=== PATIENT | male | born 1965 | race Caucasian/White ===

== ENCOUNTER 2016-09-01 17:12 | Emergency (ER) | payer MEDICAID ==
[~2016-09-01] VITALS: Ht 172.7 cm; Wt 92.3 kg
[~2016-09-01 17:12] MED LIST: CITA10TA7 PO; CLIN300C86 PO; OMEP20CA10 PO; OXYC15TA50 PO; TRAM50TA4 PO
[2016-09-01 17:15] VITALS: Ht 172.7 cm; Wt 92.3 kg
--- OUTSIDE RECORDS SUMMARY | 2016-09-01 17:17 | XMS REPORT | Referral Summary ---
Author Author [facility] Organization [facility] Address Unknown Phone Unavailable Care Team Providers Care Road Worker Name Role Phone Loyda Dumont Primary Care Physician [phone] Encounter [facility] [id number] Date(s): 05/06/16 - 05/17/16 [facility] [address] [place] [address] [phone] Discharge Disposition: 01-Home or Self Care Attending Physician: Karen Sanchez DO Admitting Physician: Kaern Sanchez DO Vital Signs Most recent to 1 oldest [Reference Range]: Temperature Axillary 36.5 degC [35.2-36.7 degC] (05/17/16 3:59 PM) Temperature Oral 36.3 degC [35.8-37.3 degC] (05/15/16 4:44 AM) Temperature Skin 36.3 degC [36-37 degC] (05/06/16 5:45 AM) Temperature Temporal 36.8 degC Artery [36.3-37.8 (05/14/16 12:00 PM) degC] Peripheral Pulse 88 bpm Rate [60-100 bpm] (05/17/16 3:59 PM) Heart Rate Monitored 97 bpm [60-100 bpm] (05/14/16 4:45 PM) Respiratory Rate 20 br/min [14-20 br/min] (05/17/16 3:59 PM) Blood Pressure 102/63 mmHg [90-140/60-90 mmHg] (05/17/16 3:59 PM) Mean Arterial 81 mmHg Pressure, Cuff (05/17/16 7:47 AM) Blood Pressure 135/69 mmHg Invasive (05/09/16 6:00 AM) [90-140/60-90 mmHg] Mean Arterial 91 mmHg Pressure, Invasive (05/09/16 6:00 AM) SpO2 92 % (05/17/16 3:59 PM) Problem List Condition Effective Dates Status Health Status Informant Acute Active pain(Confirmed) Alteration in Active nutrition(Confirmed) 1 At risk for Resolved injury(Confirmed)2 At risk of pressure Resolved sore(Confirmed) Impaired gas Resolved exchange(Confirmed)3 Impaired skin Resolved integrity(Confirmed) 4 Knowledge Resolved deficit(Confirmed)5 Laceration of Active nose(Confirmed) Obesity(Confirmed) Active patient 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) 1Problem added automatically by system based on initiation of Alteration in Nutrition Plan of Care 2Problem added automatically by system based on initiation of Risk for Injury Plan of Care 3Problem added automatically by system based on initiation of Impaired Gas Exchange Plan of Care 4Problem added automatically by system based on initiation of Impaired Skin Integrity Plan of Care 5Problem added automatically by system based on initiation of Knowledge Deficit Plan of Care Allergies, Adverse Reactions, Alerts No Known Allergies Medications [place] 5 mg-325 mg oral tablet 1 tabs, Oral, q6hr, as needed for pain, # 15 tabs, 0 Refill(s) Start Date: 05/04/16 Stop Date: 06/04/16 Status: Ordered omeprazole 20 mg oral delayed release capsule 20 mg 1 caps, Oral, Daily, # 30 caps, 3 Refill(s), Pharmacy: [id number], 1 caps Oral Daily Start Date: 05/04/16 Status: Ordered Ultram 50 mg oral tablet 50 mg 1 tabs, Oral, q4hr, as needed for pain, # 60 tabs, 2 Refill(s) Start Date: 03/29/16 Status: Ordered Results Blood Gases Most recent to 1 oldest [Reference Range]: pH [7.35-7.45] 7.39 (05/10/16 5:32 AM) pCO2 Art [35-45 50 mmHg mmHg] *HI* (05/10/16 5:32 AM) Bicarbonate [22-26 29 mEq/L mEq/L] *HI* (05/10/16 5:32 AM) Base Excess Art 4 [0-2] *HI* (05/10/16 5:32 AM) O2 Sat Art 99.1 % [90.0-97.0 %] *HI* (05/10/16 5:32 AM) pO2 Art [80-100 141 mmHg mmHg] *HI* (05/10/16 5:32 AM) O2 Panel tpiece 35% (05/10/16 5:32 AM) Vent Mode ac/vc+ (05/09/16 5:17 AM) Set Vt 500 mL (05/09/16 5:17 AM) Set Rate 10 br/min (05/09/16 5:17 AM) PEEP 5.0 (05/09/16 5:17 AM) Spec Site SEE BELOW 1 (05/10/16 5:32 AM) 1Result Comment: A. brachialis r. Hematology Most recent to 1 oldest [Reference Range]: WBC [4.8-10.8 10.0 10*3/uL 10*3/uL] (05/14/16 3:05 AM) RBC [4.60-6.20] 3.53 *LOW* (05/14/16 3:05 AM) Hgb [14.0-18.0 10.7 gm/dL gm/dL] *LOW* (05/14/16 3:05 AM) Hct [42.0-52.0 %] 32.1 % *LOW* (05/14/16 3:05 AM) MCV [82.0-99.0 fL] 90.9 fL (05/14/16 3:05 AM) MCH [27.0-32.0 pg] 30.3 pg (05/14/16 3:05 AM) MCHC [32.0-36.0 33.3 gm/dL gm/dL] (05/14/16 3:05 AM) RDW [11.5-14.5 %] 12.4 % (05/14/16 3:05 AM) Platelet [150-400 589 10*3/uL 10*3/uL] *HI* (05/14/16 3:05 AM) MPV [9.4-12.3 fL] 9.3 fL *LOW* (05/14/16 3:05 AM) Chemistry Most recent to 1 oldest [Reference Range]: Sodium Lvl [136-144 136 mEq/L mEq/L] (05/14/16 3:05 AM) Potassium Lvl 4.3 mEq/L [3.6-5.1 mEq/L] (05/14/16 3:05 AM) Chloride [99-109 98 mEq/L mEq/L] *LOW* (05/14/16 3:05 AM) CO2 [22-32 mEq/L] 29 mEq/L (05/14/16 3:05 AM) AGAP [3-20] 9 (05/14/16 3:05 AM) BUN [4-20 mg/dL] 12 mg/dL (05/14/16 3:05 AM) Glucose Lvl [70-100 120 mg/dL mg/dL] *HI* (05/14/16 3:05 AM) Creatinine Lvl 0.89 mg/dL [0.64-1.27 mg/dL] (05/14/16 3:05 AM) eGFR [>60] >60 1 (05/14/16 3:05 AM) Calcium Lvl 8.6 mg/dL [8.6-10.0 mg/dL] (05/14/16 3:05 AM) Albumin Lvl [3.5-4.8 2.4 gm/dL gm/dL] *LOW* (05/14/16 3:05 AM) Magnesium Lvl 1.9 mg/dL [1.8-2.5 mg/dL] (05/14/16 3:05 AM) Phosphorus [2.4-4.7 4.4 mg/dL 2 mg/dL] (05/14/16 3:05 AM) Calcium Ionized 1.26 mmol/L [1.19-1.41 mmol/L] (05/14/16 3:06 AM) Blood Glucose, 101 mg/dL Capillary [70-100 *HI* mg/dL] (05/06/16 4:38 PM) Trig [0-150 mg/dL] 111 mg/dL (05/10/16 3:40 AM) 1Result Comment: Multiply eGFR results by 1.21 for race. 2Result Comment: High dosages of liposomal Amphotericin B (AmBisome) therapy or other drug preparations that use a liposomal envelope to facilitate drug delivery may cause falsely elevated results for phosphorus. Urinalysis Most recent to 1 oldest [Reference Range]: UA Color Yellow (05/17/16 1:30 PM) UA Appear Clear (05/17/16 1:30 PM) UA pH [5.0-8.0] 6.0 (05/17/16 1:30 PM) UA Leuk Est Negative [Negative] (05/17/16 1:30 PM) UA Nitrite Negative [Negative] (05/17/16 1:30 PM) UA Protein Negative [Negative] (05/17/16 1:30 PM) UA Glucose Negative [Negative] (05/17/16 1:30 PM) UA Ketones Negative [Negative] (05/17/16 1:30 PM) UA Urobilinogen Negative [<1.0] (05/17/16 1:30 PM) UA Bili [Negative] Negative (05/17/16 1:30 PM) UA Blood [Negative] Negative (05/17/16 1:30 PM) UA Spec Grav 1.025 [1.003-1.030] (05/17/16 1:30 PM) Type Clean Catch (05/17/16 1:30 PM) Immunizations Given and Recorded Vaccine Date Status Refusal Reason tetanus/diphth/pertuss (Tdap) adult/adol 07/25/10 Recorded Procedures Procedure Date Related Diagnosis Body Site Arterial puncture, withdrawal of blood for 05/10/16 diagnosis Arterial puncture, withdrawal of blood for 05/08/16 diagnosis Application Wound Vac1 05/06/16 Excision Lesion Oral2 05/06/16 Flap Free Formation3 05/06/16 Radical Neck Dissection4 05/06/16 Skin Graft Split Thickness5 05/06/16 Tracheostomy6 05/06/16 Esophagogastroduodenoscopy with Peg 05/04/16 Placement7 Procedure with Anesthesia8 05/04/16 Gall Bladder 05/07/09 1auto-populated from documented surgical case 2auto-populated from documented surgical case 3auto-populated from documented surgical case 4auto-populated from documented surgical case 5auto-populated from documented surgical case 6auto-populated from documented surgical case 7auto-populated from documented surgical case 8auto-populated from documented surgical case Social History Social History Type Response Smoking Status Former smoker; Type: Oral1 1Patinet uses chewing tobacco. Assessment and Plan Extracted from: Title: ENT - OUTGOING CALL Author: Nat Perez LPN Date: 04/30/16 Contacted pt to follow up on him and see how he was doing. Pt stated he was doing okay, just nervous about upcoming surgery. We discussed the need for a Peg Tube prior to surgery (sometime next week). Pt aware and will await call with further instructions. I also mailed pt information on support groups and trach home care guide. Nat Perez LPN
--- OUTSIDE RECORDS SUMMARY | 2016-09-01 17:17 | XMS REPORT | Referral Summary ---
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 Discharge Disposition: 01-Home or Self Care Attending Physician: Dariel Guerrier III, MD Admitting Physician: Dariel Guerrier III, MD Vital Signs No data available for this section Problem List Condition Effective Dates Status Health Status Informant Laceration of Active nose(Confirmed) Obesity(Confirmed) Active patient 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) Allergies, Adverse Reactions, Alerts No Known Allergies Medications Lortab 7.5/325 tabs, Oral, q6hr, 0 Refill(s) Start Date: 04/21/16 Status: Ordered OxyCONTIN 15 mg oral tablet, extended release 15 mg 1 tabs, Oral, q12hr, 0 Refill(s) Start Date: 05/03/16 Status: Ordered Ultram 50 mg oral tablet 50 mg 1 tabs, Oral, q4hr, as needed for pain, # 60 tabs, 2 Refill(s) Start Date: 03/29/16 Status: Ordered Results No data available for this section Immunizations Given and Recorded Vaccine Date Status Refusal Reason tetanus/diphth/pertuss (Tdap) adult/adol 07/25/10 Recorded Procedures Procedure Date Related Diagnosis Body Site Gall Bladder 05/07/09 Social History Social History Type Response Smoking Status Current every day smoker; Type: Oral1 1Patinet uses chewing tobacco. Assessment and Plan No data available for this section
--- OUTSIDE RECORDS SUMMARY | 2016-09-01 17:17 | XMS REPORT | Continuity of Care Document ---
Author Author [facility] Organization [facility] Address Unknown Phone Unavailable Care Team Providers Care Stock Puller Name Role Phone LIGIA PINEDO MD Primary Care Physician [phone] Insurance Providers Guarantor Mesfin Sullivan Jr Address [address] [place] [address] Email DENIED 16 Payer [facility] Community Plan Policy Number [id number] Subscriber's Name Mesfin Sullivan Jr Relationship 18 Self Effective Date 16 Expiration Date 16 Advance Directives Directive Response Recorded Date/Time Advanced Directives Type None 06/06/16 2:19pm Chief Complaint and Reason for Visit Chief Complaint Post-Surgical Problem Reason for Visit Abscess Problems Active Problems Medical Problem Onset Date Status Abscess Unknown Acute Cancer of mandible Unknown Past Problems Medical Problem Onset Date Cellulitis of leg Unknown Medications Current Home Medications Medication Dose Units Route Directions Days Qty Instructions Start Date Citalopram Hydrobromide (Citalopram Hbr) 10 Mg Tablet 10 Mg Oral Daily 06/06/16 Clindamycin Hcl 300 Mg Capsule 1 Cap Oral Four Times Daily 10 Days 40 Capsule TAKE WITH A FULL GLASS OF WATER TO AVOID ESOPHAGEAL IRRITATION. Omeprazole 20 Mg Capsule.dr 20 Mg Oral Daily 06/06/16 Oxycodone Hcl 15 Mg Tablet 15 Mg Oral Every 4 Hours as needed for Pain 06/06/16 Tramadol Hcl 50 Mg Tablet 50 Mg Oral Every 4 Hours as needed for Pain 05/24/16 Past Home Medications Medication Directions Ordered Status Hydrocodone Bit/Acetaminophen (Lortab 5) 1 Tab Tablet, 1 Tab Oral As Needed 05/07/09 Discontinued Social History Social History Problem Response Recorded Date/Time Onset Date Status Hx Substance Use No 06/06/2016 2:20pm Not Applicable Not Applicable Hx Alcohol Use Y OCC 06/06/2016 2:20pm Not Applicable Not Applicable Query Response Start Date Stop Date Smoking Status Never smoker Hospital Discharge Instructions No hospital discharge instructions. Plan of Care Discharge Date 06/06/16 7:02pm Disposition 01 DISCHARGED HOME, SELF-CARE Condition at Discharge Stable Instructions/Education Provided Abscess (ED) Prescriptions See Medication Section Referrals Dr Sanchez Address: follow up tomorrow Note: Additional Instructions/Education follow up tomorrow with your surgeon, return to the ER if needed. Functional Status No functional status results. Allergies, Adverse Reactions, Alerts No known allergies. Immunizations Query Response on File Recorded Date/Time Hx Influenza Vaccination No 05/06/09 10:59am Hx Pneumococcal Vaccination No 05/06/09 10:59am Hx Influenza Vaccination No 05/06/09 10:59am Influenza Vaccine Hx NOT REC'D 06/06/16 2:20pm Tdap Vaccine Hx SKIN INTACT 06/06/16 2:20pm Vital Signs Acute Vital Signs Vital Response Date/Time Temperature (Fahrenheit) 97.4 deg F (96.8 - 99.1) 06/06/2016 7:02pm Temperature (Calculated Celsius) 36.44547 degrees C (36.0 - 37.3) 06/06/2016 7:02pm Pulse Rate (adult) 76 bpm (60 - 100) 06/06/2016 7:02pm Respiratory Rate 14 breaths/min (10 - 20) 06/06/2016 7:02pm O2 Sat by Pulse Oximetry 95 % (90 - 100) 06/06/2016 7:02pm Blood Pressure 112/79 mm Hg 06/06/2016 7:02pm Height (Feet) 5 feet 06/06/2016 1:28pm Height (Inches) 7.00 inches 06/06/2016 1:28pm Weight (Kilograms) 89.900 kg 06/06/2016 1:28pm Body Mass Index (BMI) 31.0 06/06/2016 1:28pm Results Laboratory Results Test Name Result Units Flags Reference Collection Date/Time Result Date/ Time Comments Total Bilirubin 0.70 MG/DL 0.20-1.30 05/24/2016 11:07pm 05/24/2016 11: 22pm Alkaline Phosphatase 67 U/L 38-126 05/24/2016 11:07pm 05/24/2016 11: 22pm Total Protein 7.4 G/DL 6.3-8.2 05/24/2016 11:07pm 05/24/2016 11:22pm Albumin 3.9 G/DL 3.5-5.0 05/24/2016 11:07pm 05/24/2016 11:22pm Globulin 3.5 G/DL 2.4-3.6 05/24/2016 11:07pm 05/24/2016 11:22pm Albumin/Globulin Ratio 1.1 RATIO 1.1-2.2 05/24/2016 11:07pm 05/24/2016 11:22pm Aspartate Amino Transf (AST/SGOT) 26 U/L 17-59 05/24/2016 11:07pm 05/24 11:22pm Alanine Aminotransferase (ALT/SGPT) 29 U/L 21-72 05/24/2016 11:07pm 11:22pm White Blood Count 7.5 T/MM3 4.5-11.0 06/06/2016 3:32pm 06/06/2016 3: 50pm Red Blood Count 4.11 M/MM3 L 4.50-5.90 06/06/2016 3:32pm 06/06/2016 3: 50pm Hemoglobin 11.8 GM/DL L 13.5-17.5 06/06/2016 3:32pm 06/06/2016 3:50pm Hematocrit 36.6 % L 41-53 06/06/2016 3:32pm 06/06/2016 3:50pm Mean Corpuscular Volume 89.1 UM3 80-100 06/06/2016 3:32pm 06/06/2016 3: 50pm Mean Corpuscular Hemoglobin 28.7 UUG 26-34 06/06/2016 3:32pm 2016 3:50pm Mean Corpuscular Hemoglobin Concent 32.2 GM/DL 31-37 06/06/2016 3:32pm 06/06/2016 3:50pm RDW Standard Deviation 40.4 FL 36.9-50.2 06/06/2016 3:32pm 06/06/2016 3 :50pm Platelet Count 355 T/MM3 D 130-400 06/06/2016 3:32pm 06/06/2016 3:50pm Mean Platelet Volume 9.7 UM3 9.4-12.4 06/06/2016 3:[facility] 06/06/2016 3: 50pm Neutrophils (%) (Auto) 60.7 % 33-66 06/06/2016 3:[facility] 06/06/2016 3: 50pm Lymphocytes (%) (Auto) 27.8 % 23-45 06/06/2016 3:[facility] 06/06/2016 3: 50pm Monocytes (%) (Auto) 8.0 % 0-9.0 06/06/2016 3:[facility] 06/06/2016 3:50pm Eosinophils (%) (Auto) 2.5 % 0-4 06/06/2016 3:[facility] 06/06/2016 3:50pm Basophils (%) (Auto) 0.9 % 0-2 06/06/2016 3:[facility] 06/06/2016 3:50pm Immature Granulocyte % (Auto) 0.1 % 0.0-0.5 06/06/2016 3:[facility] 2016 3:50pm Absolute Neutrophils (auto) 4.5 T/MM3 1.8-7.7 06/06/2016 3:[facility] 2016 3:50pm Absolute Lymphocytes (auto) 2.1 T/MM3 1-4.8 06/06/2016 3:[facility] 2016 3:50pm Absolute Monocytes (auto) 0.6 T/MM3 0-0.8 06/06/2016 3:[facility] 06/06/2016 3:50pm Absolute Eosinophils (auto) 0.2 T/MM3 0-0.5 06/06/2016 3:[facility] 2016 3:50pm Absolute Basophils (auto) 0.1 T/MM3 0-0.2 06/06/2016 3:[facility] 06/06/2016 3:50pm Absolute Immature Granulocyte (auto 0.01 T/MM3 0.00-0.03 06/06/2016 3: [facility] 06/06/2016 3:50pm Icterus Index < 2 0-7 06/06/2016 3:32p 06/06/2016 3:49pm Chemistry Specimen Hemolysis < 15 0-25 06/06/2016 3:[facility] 06/06/2016 3 :49pm 0-25: Specimen Exhibited No Hemolysis. Turbidity < 20 0-20 06/06/2016 3:32pm 06/06/2016 3:49pm Sodium Level 140 MEQ/L 134-144 06/06/2016 3:32pm 06/06/2016 3:49pm Potassium Level 4.2 MEQ/L 3.6-5 06/06/2016 3:32pm 06/06/2016 3:49pm Chloride Level 104 MEQ/L 98-107 06/06/2016 3:32pm 06/06/2016 3:49pm Carbon Dioxide Level 26 MEQ/L 22-30 06/06/2016 3:32pm 06/06/2016 3: 49pm Anion Gap 10 MEQ/L 5-15 06/06/2016 3:32pm 06/06/2016 3:49pm Blood Urea Nitrogen 8.0 MG/DL L 9-06/06/2016 3:32pm 06/06/2016 3: 49pm Creatinine 0.9 MG/DL 0.8-1.5 06/06/2016 3:32pm 06/06/2016 3:49pm BUN/Creatinine Ratio 9 RATIO 6-06/06/2016 3:32pm 06/06/2016 3:49pm Glomerular Filtration Rate Calc 89 06/06/2016 3:32pm 06/06/2016 3: 49pm Glucose Level 97 MG/DL 75-110 06/06/2016 3:32pm 06/06/2016 3:49pm Calculated Osmolality 267 MOSM/KG 261-280 06/06/2016 3:32pm 06/06/2016 3:49pm Calcium Level 9.3 MG/DL 8.4-10.2 06/06/2016 3:32pm 06/06/2016 3:49pm Microbiology Results Procedure Source Organism/Result Collection Date/Time Result Date/Time Result Status WOUND CULTURE SUPERFICIAL-AER Leg, Right Lower PSEUDOMONAS AERUGINOSA 2016 11:06pm 05/27/2016 9:15am Final Procedures Procedure Status Date Provider(s) Comprehen metabolic panel Completed 05/24/16 Complete cbc w/auto diff wbc Completed 05/24/16 Culture othr specimn aerobic Completed 05/24/16 Smear gram stain Completed 05/24/16 Ther/proph/diag inj iv push Completed 05/24/16 Tx/pro/dx inj new drug addon Completed 05/24/16 Emergency dept visit Completed 05/24/16 [id number]"INJECTION, HYDROMORPHONE, UP TO 4 MG" Completed 05/24/16 [id number]"INJECTION, KETOROLAC TROMETHAMINE, PER 15 MG" Completed 05/24/16 Encounters Encounter Location Arrival/Admit Date Discharge/Depart Date Attending Provider Departed Emergency Room [facility] 06/06/16 1:17pm 06/06/16 7: 02pm RACQUEL GREEN MD Departed Emergency Room [facility] 05/24/16 10:40pm 05/25/16 12: 12am JERSON COOPER MD Recent Diagnosis
--- OUTSIDE RECORDS SUMMARY | 2016-09-01 17:17 | XMS REPORT | Referral Summary ---
Author Author [facility] Organization [facility] Address Unknown Phone Unavailable Care Team Providers Care Painter Barrel Name Role Phone DustintoyinLoyda Primary Care Physician [phone] Encounter [facility] [id number] Date(s): 05/04/16 - 05/04/16 [facility] [address] [place] [address] Discharge Disposition: 01-Home or Self Care Attending Physician: Dariel Guerrier III, MD Vital Signs Most recent to 1 oldest [Reference Range]: Temperature Temporal 36.4 degC Artery [36.3-37.8 (05/04/16 10:52 AM) degC] Peripheral Pulse 69 bpm Rate [60-100 bpm] (05/04/16 10:52 AM) Heart Rate Monitored 45 bpm [60-100 bpm] *LOW* (05/04/16 1:00 PM) Respiratory Rate 22 br/min (05/04/16 1:11 PM) Blood Pressure 124/114 mmHg [90-140/60-90 mmHg] (05/04/16 1:00 PM) Mean Arterial 120 mmHg Pressure, Cuff (05/04/16 1:00 PM) SpO2 96 % (05/04/16 1:00 PM) Problem List Condition Effective Dates Status Health Status Informant Laceration of Active nose(Confirmed) Obesity(Confirmed) Active patient 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) Allergies, Adverse Reactions, Alerts No Known Allergies Medications Lortab 7.5/325 tabs, Oral, q6hr, 0 Refill(s) Start Date: 04/21/16 Status: Ordered [place] 5 mg-325 mg oral tablet 1 tabs, Oral, q6hr, as needed for pain, # 15 tabs, 0 Refill(s) Start Date: 05/04/16 Stop Date: 06/04/16 Status: Ordered omeprazole 20 mg oral delayed release capsule 20 mg 1 caps, Oral, Daily, # 30 caps, 3 Refill(s), Pharmacy: [id number], 1 caps Oral Daily Start Date: 05/04/16 Status: Ordered OxyCONTIN 15 mg oral tablet, [...] Procedures Procedure Date Related Diagnosis Body Site Esophagogastroduodenoscopy with Peg 05/04/16 Placement1 Procedure with Anesthesia2 05/04/16 Gall Bladder 05/07/09 1auto-populated from documented surgical case 2auto-populated from documented surgical case Social History Social History Type Response Smoking Status Former smoker; Type: Oral1 1Patinet uses chewing tobacco. Assessment and Plan No data available for this section
--- OUTSIDE RECORDS SUMMARY | 2016-09-01 17:17 | XMS REPORT | Referral Summary ---
Author Author [facility] Organization [facility] Address Unknown Phone Unavailable Care Team Providers Care Document Specialist Name Role Phone Loyda Dumont Primary Care Physician [phone] Encounter Date(s): 05/24/16 - 05/24/16 [facility] [address] [place], [place] [address] Discharge Diagnosis: Oral cancer Discharge Disposition: 01-Home or Self Care Attending Physician: Anthony Martinez MD Admitting Physician: Anthony Martinez MD Vital Signs No data available for [...] Adverse Reactions, Alerts No Known Allergies Medications clindamycin 300 mg oral capsule 300 mg 1 caps, Oral, q6hr, X 5 days, # 20 caps, 0 Refill(s), Pharmacy: [facility] #[id number], 1 caps Oral q6hr,x5 days Start Date: 05/21/16 Stop Date: 05/26/16 Status: Ordered Colace 50 mg oral capsule 50 mg 1 caps, Oral, BID, as needed for constipation, # 180 caps, 0 Refill(s) Start Date: 05/18/16 Status: Ordered omeprazole 20 mg oral delayed release capsule 10 mL, Oral, BID, 0 Refill(s) Start Date: 05/18/16 Status: Ordered ondansetron 8 mg oral tablet 8 mg 1 tabs, Oral, q6hr, Disintegrating tabs ordered to [facility], # 60 tabs, 3 Refill(s), called to pharmacy (Rx) Start Date: 05/18/16 Status: Ordered oxyCODONE-acetaminophen 10 mg-300 mg oral tablet 10-20 mg tabs, Oral, q4hr, Pain Severe (7-10), soln-oral., X 60 days, 0 Refill(s ) Start Date: 05/18/16 Stop Date: 07/17/16 Status: Ordered Ultram 50 mg oral tablet 50 mg 1 tabs, Oral, q4hr, as needed for pain, # 60 tabs, 2 Refill(s) Start Date: 03/29/16 Status: Ordered Results No data available for this section Immunizations Given and Recorded Vaccine Date Status Refusal Reason tetanus/diphth/pertuss (Tdap) adult/adol 07/25/10 Recorded Procedures Procedure Date Related Diagnosis Body Site Application Wound Vac1 05/06/16 Cervical lymphadenectomy (modified radical 05/06/16 neck dissection)..2 Excision Lesion Oral3 05/06/16 Excision of sublingual gland.. 05/06/16 Excision of submandibular (submaxillary) 05/06/16 gland4 Flap Free Formation5 05/06/16 Glossectomy; composite procedure with 05/06/16 resection floor of mouth and mandibular resection, without radical neck dissection.. Radical Neck Dissection6 05/06/16 Reconstruction of mandible or maxilla, 05/06/16 endosteal implant (eg, blade, cylinder); complete Skin Graft Split Thickness7 05/06/16 Tracheostomy8 05/06/16 Tracheostomy, planned (separate procedure);9 05/06/16 Vestibuloplasty; complex (including ridge 05/06/16 extension, muscle repositioning)..10 Esophagogastroduodenoscopy with Peg 05/04/16 [id number] Procedure with [id number] 05/04/16 Gall Bladder 05/07/09 1auto-populated from documented surgical case 2Dr Claus Regehr assisted. 3auto-populated from documented surgical case 4Dr. Claus Regehr assisted. 5auto-populated from documented surgical case 6auto-populated from documented surgical case 7auto-populated from documented surgical case 8auto-populated from documented surgical case 9Dr. Claus Regehr assisted. 10Dr. Claus Regehr assisted. 11auto-populated from documented surgical case 12auto-populated from documented surgical case Social History Social History Type Response Smoking Status Former smoker; Type: Oral1 1Patinet uses chewing tobacco. Assessment and Plan Extracted from: Title: Ambulatory Patient Education Author: Anthony Martinez MD Date : 05/24/16 ENT Radical Neck Dissection When cancer cells of the neck and head grow and multiply, they can spread ( metastasize). Usually the first place to which they metastasize is the lymph nodes in your neck. Your lymph nodes are oval-shaped organs that help filter toxins and cells from your body. Your lymph nodes are linked through a network of lymph vessels. From the lymph nodes, cancer cells can metastasize through the lymph vessels to other other parts of your body. Radical neck dissection is surgery to remove lymph nodes and other structures in your neck that have become or are thought to have become cancerous (malignant ). The goal of this surgery is to remove all of the cancer and prevent the cancer from metastasizing to other parts of your body, while preserving as much of the function and normal appearance of the neck as possible. Radical neck dissection is not done if cancer has metastasized to other parts of your body. Other structures in your neck, in addition to lymph nodes, that may be removed during radical neck dissection include: The sternocleidomastoid muscle. This muscle goes from your upper chest to the back of your skull. It gives your neck its shape and helps you to flex your head. Very little function is lost when it is removed. The jugular vein. A large chain of lymph nodes surround this vessel. This vein drains blood from your head. The submandibular gland. This gland is under the jaw and makes saliva. You have other salivary glands, so you will only notice a slight change in the amount of saliva that you produce after this gland is removed. The spinal accessory nerve. This is a nerve that helps you control speech , swallowing, and certain movements of your head and neck.After this nerve is removed, your shoulder will droop and your arm movement above 90 degrees will be limited. LET YOUR CAREGIVER KNOW ABOUT: Any allergies you have. All medicine you take, include vitamins, herbs, eyedrops, over-the- counter medicines, and creams. Any problems you have had with numbing medicines (local anesthetics) or medicines that make you sleep (general anesthetics). Any blood disorders you have. Any surgeries you have had. Any other health problems you have. RISKS AND COMPLICATIONS There are certain risks that are associated with all major surgeries: allergic reaction to the general anesthetic, bleeding, and infection. However, there are specific risks associated with radical neck dissection. The greatest risks associated with radical neck dissection are damage to nerves and blood vessels in your neck. Injury to your carotid artery can lead to stroke. If you have a vascular disease and your jugular vein is removed during the procedure, you may have facial swelling after the procedure. Nerve damage can result in numbness and loss of function to your face, tongue, neck, throat, and shoulder. This damage and loss of function can be either temporary or permanent. Specific examples include: Weakness of facial muscles. Hoarseness. Difficulty swallowing. Numbness in your tongue. Loss in movement of your tongue. BEFORE THE PROCEDURE Do not eat or drink anything after midnight on the night before your procedure. Your caregiver will tell you if you need to stop taking any of your regular medicines or adjust your dosage. Your caregiver may have the following tests performed to make sure you are ready for surgery: Blood tests. Chest X-ray exams. Electrocardiography. This procedure measures the electrical activity of your heart. Electrocardiography is performed to make sure that your heartbeat is consistent. Imaging exams, such as computed tomography (CT), positron emission tomography (PET), and magnetic resonance imaging (MRI). These exams help your caregiver to understand how extensive your cancer is and whether it has metastasized to other parts of your body. PROCEDURE Radical neck dissection takes between 2 hours and 4 hours to complete, depending on the location of the cancer and the lymph nodes involved. You will receive a general anesthetic through an intravenous line (IV) that will be placed in your hand or arm. You will also receive fluids and medicines through this tube during your procedure and for 1 day or more after the procedure. Once you are asleep, the surgeon will make a long cut (incision) on one side of your neck, from just above your collarbone to just below your jawbone. Other smaller incisions may also be needed. Muscles that do not need to be removed will be carefully moved aside. Care is taken to protect your nerves and blood vessels during the procedure. The malignant lymph nodes and other malignant structures are removed. One or more plastic drains may be inserted at the bottom of your neck. Suction bulbs will be attached to catch the excess blood and other fluids that will drain from your incision after the procedure. The surgeon will close the incision with stitches or félix and cover the incision and drainage area with a bandage (dressing). AFTER THE PROCEDURE You will be taken to a recovery area until the anesthetic wears off. Then you will be taken to a hospital room. The typical hospital stay after radical neck dissection is between 2 days and 5 days. When you can drink again, your IV will be removed. Soon after that, you will be able to begin eating food. The drains will stay in for several days. Your caregivers will empty the bulbs. The drains can come out when no more fluid is draining. Some people go home with the drains still in. If you do, your caregiver will show you how to take care of them at home. Stitches or félix used to close your incision will stay in for about 1 week. This information is not intended to replace advice given to you by your health care provider. Make sure you discuss any questions you have with your health care provider. Document Released: 06/19/2012 Document Revised: 04/18/2015 Document Reviewed: Elsevier Interactive Patient Education 2016 [employer] No follow up information was provided.
--- OUTSIDE RECORDS SUMMARY | 2016-09-01 17:17 | XMS REPORT | Referral Summary ---
Author Author [facility] Organization [facility] Address Unknown Phone Unavailable Care Team Providers Care Molder Foam Rubber Name Role Phone Loyda Dumont Primary Care Physician [phone] Encounter [facility] Date(s): 05/18/16 - 05/18/16 [facility] [address] [place], [place] [address] Discharge Disposition: 01-Home or Self Care Attending Physician: Suad Lara Admitting Physician: Suad Lara Referring Physician: Claus Dumont MD Vital Signs No data available for [...] Adverse Reactions, Alerts No Known Allergies Medications Colace 50 mg oral capsule 50 mg [...] Diagnosis Body Site Application Wound Vac1 05/06/16 Excision Lesion Oral2 [...]
--- OUTSIDE RECORDS SUMMARY | 2016-09-01 17:17 | XMS REPORT | Referral Summary ---
Author Author [facility] Organization [facility] Address Unknown Phone Unavailable Care Team Providers Care Manager Front Office Name Role Phone Loyda Dumont Primary Care Physician [phone] Encounter [facility] [id number] Date(s): 05/19/16 - 05/19/[address] [facility] [address] [place], [place] [address] Discharge Disposition: 01-Home or Self Care Attending Physician: Karen Sanchez DO Admitting Physician: Karen Sanchez DO Vital Signs No data available for this [...] tabs, Oral, q6hr, Disintegrating tabs ordered to [facility] # 60 tabs, 3 Refill(s), called to [...]
--- OUTSIDE RECORDS SUMMARY | 2016-09-01 17:17 | XMS REPORT | Continuity of Care Document ---
Author Author [facility] Organization [facility] Address Unknown Phone Unavailable Support Name Relationship Address Phone NOHEMI LIPSCOMB Caregiver [facility] [address] [place] [address] LIGIA PINEDO MD Caregiver [address] [place] [address] ROSALINA SULLIVAN Next Of Kin [address] [address] Insurance Providers Payer Name Policy Number Subscriber Name Relationship Workers Compensation Mesfin Sullivan Jr 19 Self Problems No known problems or medical conditions. Medications Medication Dose Route Sig Days/Qty Instructions Order Date Discontinued Date Status Hydrocodone Bit/Acetaminophen 1 Tab PO NEEDED 05/07/09 Active Naproxen 500 Mg PO NEEDED 05/07/09 Active Social History Social History Problem Response Recorded Date/Time Hx Substance Use No 05/06/2009 10:59am Hx Alcohol Use Y OCC 05/06/2009 10:59am Hospital Discharge Instructions No hospital discharge instructions. Plan of Care No plan of care. Functional Status No functional status results. Allergies, Adverse Reactions, Alerts Allergen Type Severity Reaction Status Last Updated No Known Allergies Allergy Unknown Active 04/23/09 Immunizations Name Given Type Hx Influenza Vaccination No Historical Hx Pneumococcal Vaccination No Historical Hx Influenza Vaccination No Historical Vital Signs No known vital signs results. Results Test Source Date Result Interp. Ref. Range Comments Alanine Aminotransferase (ALT/SGPT) March 19, 2010 11:26pm 18 U/L L 21-72 Albumin March 19, 2010 11:26pm 3.87 G/DL N 3.5-5.0 Albumin/Globulin Ratio March 19, 2010 11:26pm 1.4 RATIO N 1.1-2.2 Alkaline Phosphatase March 19, 2010 11:26pm 51 U/L N 38-126 Amylase Level April 23, 2009 3:35pm 61 U/L N 30-110 Anion Gap March 19, 2010 11:26pm 8.9 MEQ/L N 5-15 Aspartate Amino Transf (AST/SGOT) March 19, 2010 11:26pm 21 U/L N 17- 59 BUN/Creatinine Ratio March 19, 2010 11:26pm 12 RATIO N 6-26 Basophils # (Auto) March 19, 2010 11:26pm 0.1 T/MM3 N 0-0.2 Basophils (%) (Auto) March 19, 2010 11:26pm 1.5 % N 0-2 Blood Urea Nitrogen March 19, 2010 11:26pm 11.1 MG/DL N 9-20 Calcium Level March 19, 2010 11:26pm 8.7 MG/DL N 8.4-10.2 Calculated Osmolality March 19, 2010 11:26pm 270 MOSM/KG N 261-280 Carbon Dioxide Level March 19, 2010 11:26pm 26 MEQ/L N 22-30 Chloride Level March 19, 2010 11:26pm 106 MEQ/L N 98-107 Creatinine March 19, 2010 11:26pm 0.9 MG/DL N 0.8-1.5 Eosinophils # (Auto) March 19, 2010 11:26pm 0.4 T/MM3 N 0-0.5 Eosinophils (%) (Auto) March 19, 2010 11:26pm 5.4 % H 0-4 Globulin March 19, 2010 11:26pm 2.8 G/DL N 2.4-3.6 Glucose Level March 19, 2010 11:26pm 100 MG/DL N 75-110 Hematocrit March 19, 2010 11:26pm 41.8 % N 41-53 Hemoglobin March 19, 2010 11:26pm 14.8 GM/DL N 13.5-17.5 Lipase April 23, 2009 3:35pm 83 U/L N 23-300 Lymphocytes # (Auto) March 19, 2010 11:26pm 2.0 T/MM3 N 1-4.8 Lymphocytes (%) (Auto) March 19, 2010 11:26pm 29.2 % N 23-45 Mean Corpuscular Hemoglobin March 19, 2010 11:26pm 31.8 UUG N 26-34 Mean Corpuscular Hemoglobin Concent March 19, 2010 11:26pm 35.4 GM/DL N 31-37 Mean Corpuscular Volume March 19, 2010 11:26pm 89.9 UM3 N 80-100 Mean Platelet Volume March 19, 2010 11:26pm 9.7 UM3 N 7.4-10.4 Monocytes # (Auto) March 19, 2010 11:26pm 0.5 T/MM3 N 0-0.8 Monocytes (%) (Auto) March 19, 2010 11:26pm 7.7 % N 0-9.0 Neutrophils # (Auto) March 19, 2010 11:26pm 3.9 T/MM3 N 1.8-7.7 Neutrophils (%) (Auto) March 19, 2010 11:26pm 56.2 % N 33-66 Platelet Count March 19, 2010 11:26pm 317 T/MM3 N 130-400 Potassium Level March 19, 2010 11:26pm 4.2 MEQ/L N 3.6-5 RDW Standard Deviation March 19, 2010 11:26pm 38.6 FL N 36.9-50.2 Red Blood Count March 19, 2010 11:26pm 4.65 M/MM3 DN 4.50-5.90 Sodium Level March 19, 2010 11:26pm 141 MEQ/L N 134-144 Tests Not Done April 23, 2009 3:55pm Not done - Has specimen been collected/obtained? Y Total Bilirubin March 19, 2010 11:26pm 0.21 MG/DL N 0.20-1.30 Total Protein March 19, 2010 11:26pm 6.7 G/DL N 6.3-8.2 Urine Bilirubin April 23, 2009 3:55pm Negative - Has specimen been collected/obtained? Y Urine Blood April 23, 2009 3:55pm Negative - Has specimen been collected/obtained? Y Urine Collection Type April 23, 2009 3:55pm Voided - Has specimen been collected/obtained? Y Urine Color April 23, 2009 3:55pm Yellow - Has specimen been collected/obtained? Y Urine Drug Screen (T) November 09, 2007 6:31pm Sent out - Urine Glucose (UA) April 23, 2009 3:55pm Negative - Has specimen been collected/obtained? Y Urine Ketones April 23, 2009 3:55pm Negative - Has specimen been collected/obtained? Y Urine Leukocyte Esterase April 23, 2009 3:55pm Negative - Has specimen been collected/obtained? Y Urine Nitrite April 23, 2009 3:55pm Negative - Has specimen been collected/obtained? Y Urine Protein April 23, 2009 3:55pm Negative - Has specimen been collected/obtained? Y Urine Specific [place] April 23, 2009 3:55pm 1.015 - Has specimen been collected/obtained? Y Urine Turbidity April 23, 2009 3:55pm Clear - Has specimen been collected/obtained? Y Urine Urobilinogen April 23, 2009 3:55pm 4 EU/DL H - Has specimen been collected/obtained? Y Urine pH April 23, 2009 3:55pm 8.0 - Has specimen been collected/ obtained? Y White Blood Count March 19, 2010 11:26pm 6.9 T/MM3 N 4.5-11.0 Lab Scanned Report February 15, 2011 11:01am [facility] [id number] - EKG April 23, 2009 3:38pm Complete - Glomerular Filtration Rate Calc March 19, 2010 11:26pm 92 - Procedures No known history of procedures. Encounters Encounter Location Date/Time Departed Emergency Room [facility] 11/12/13 3:36pm Recent Diagnosis
--- OUTSIDE RECORDS SUMMARY | 2016-09-01 17:18 | XMS REPORT | Referral Summary ---
Author Author [facility] Organization [facility] Address Unknown Phone Unavailable Care Team Providers Care Restaurant General Manager Name Role Phone Loyda Dumont Primary Care Physician [phone] Encounter 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 Discharge Disposition: 01-Home or Self Care Attending Physician: Karen Sanchez DO Referring Physician: Claus Dumont MD Vital Signs [...] 0 Refill(s) Start Date: 05/18/16 Status: Ordered Levaquin 750 mg oral tablet 750 mg 1 tabs, Oral, q24hr, X 10 days, 0 Refill(s) Start Date: 05/25/16 Stop Date: 06/03/16 Status: Ordered omeprazole 20 mg oral delayed release capsule 10 mL, Oral, BID, 0 Refill(s) Start Date: 05/18/16 Status: Ordered oxyCODONE 15 mg oral tablet See Instructions, Pain Severe (7-10), 1-2 tabs Oral q4hr, PRN for pain., # 100 tabs, 0 Refill(s), other reason (Rx), Hand carried from office. Start Date: 05/25/16 Stop Date: 06/15/16 Status: Ordered Ultram 50 mg oral tablet 50 mg 1 tabs, Oral, q4hr, as needed for pain, # 60 tabs, 2 Refill(s) Start Date: 03/29/16 Status: Ordered Results No data available for this section Immunizations Given and Recorded Vaccine Date Status Refusal Reason tetanus/diphth/pertuss (Tdap) adult/adol 07/25/10 Recorded Procedures Procedure Date Related Diagnosis Body Site Tracheobronchoscopy through established 05/27/16 tracheostomy incision.. Application Wound Vac1 05/06/16 Cervical lymphadenectomy (modified [...] extension, muscle repositioning)..10 Esophagogastroduodenoscopy with Peg 05/04/16 [id number] Procedure with [id number] 05/04/16 Gall Bladder 05/07/09 1auto-populated from documented surgical case 2Dr Claus Regehr assisted. 3auto-populated from documented surgical case 4Dr. Claus Regehr assisted. 5auto-populated from documented surgical case 6auto-populated from documented surgical case 7auto-populated from documented surgical case 8auto-populated from documented surgical case 9DrDorian Matuter assisted. 10DrDorian Banegas assisted. 11auto-populated from documented surgical case 12auto-populated from documented surgical case Social History Social History Type Response Smoking Status Former smoker; Type: Oral1 1Patinet uses chewing tobacco. Assessment and Plan No data available for this section
--- OUTSIDE RECORDS SUMMARY | 2016-09-01 17:18 | XMS REPORT | Referral Summary ---
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 He will call once hisfoot/right lower extremitysurgery has been completed and then we can arrange EGD withfeeding tube removal.
--- OUTSIDE RECORDS SUMMARY | 2016-09-01 17:18 | XMS REPORT | Referral Summary ---
Author Author [facility] Organization [facility] Address Unknown Phone Unavailable Care Team Providers Care Technical Mgr Name Role Phone Loyda Dumont Primary Care Physician [phone] Encounter [facility] [id number] Date(s): 05/31/16 - 05/31/16 [facility] [address] [place], [place] [address] Discharge Diagnosis: Oral cancer Discharge [...] extension, muscle repositioning)..10 Esophagogastroduodenoscopy with Peg 05/04/16 [id number] Procedure with [id number] 05/04/16 Gall Bladder 05/07/09 1auto-populated from documented surgical case 2Dr Claus Banegas assisted. 3auto-populated from documented surgical case 4Dr. Claus Banegas assisted. 5auto-populated from documented surgical case 6auto-populated from documented surgical case 7auto-populated from documented surgical case 8auto-populated from documented surgical case 9Dr. Claus Regehr assisted. 10DrDorian Devlin Regehr assisted. 11auto-populated from documented surgical case 12auto-populated from documented surgical case Social History Social History Type Response Smoking Status Former smoker; Type: Oral1 1Patinet uses chewing tobacco. Assessment and Plan Extracted from: Title: Ambulatory Patient Education Author: Anthony Martinez MD Date : 05/31/16 Surgery Skin Grafting Skin grafting is a surgical procedure to cover an area of damaged or missing skin with a piece of healthy skin from another area of the body (donor site) or from a donor. You may have a graft using skin from: Another part of your body (autograft). The body of another person (allograft). An animal's body (xenograft). You may need a skin graft if you have lost a large area of skin from a burn, wound, or pressure sore. You may also need skin grafting if you had a large piece of skin removed as a result of surgery. Skin grafting can help your skin to heal, prevent large scars, and prevent infection. The three main types of skin grafts are: Split-thickness skin graft. This option works for wounds that are not deep. It is a graft that contains the top skin layer (epidermis) and a portion of the skin that contains blood vessels, nerves, hair follicles, and oil and sweat glands (dermis). Full-thickness skin graft. This option is best for deep wounds or severe gillette. It is a graft that requires all layers of skin as well as some supporting tissues underneath. When this type is done, a split-thickness graft may be used to cover the donor site. Composite skin graft. This type is used for grafts that need more reconstruction. The graft might include cartilage and fat as well as skin. LET YOUR HEALTH CARE PROVIDER KNOW ABOUT: Any allergies you have. All medicines you are taking, including vitamins, herbs, eye drops, creams, and [id number]-llryqbw medicines. Previous problems you or members of your family have had with the use of anesthetics. Any blood disorders you have. Previous surgeries you have had. Medical conditions you have. RISKS AND COMPLICATIONS Generally, this is a safe procedure. However, problems may occur, including: Infection. Loss of grafted skin. Bleeding. Blood under the skin (hematoma). Scarring. Need for additional grafts. BEFORE THE PROCEDURE Ask your health care provider about: Changing or stopping your regular medicines. This is especially important if you are taking diabetes medicines or blood thinners. Taking medicines such as aspirin and ibuprofen. These medicines can thin your blood. Do not take these medicines before your procedure if your health care provider instructs you not to. Follow your health care provider's instructions about eating or drinking restrictions. Plan to have someone take you home after the procedure. Take a shower on the morning of the procedure. You may have to use a certain cleanser as specified by your health care provider. PROCEDURE For a split-thickness graft: An IV tube will be inserted into one of your veins. You will be given a medicine that makes you fall asleep (general anesthetic). Your wound will be cleaned to make sure it is free of dirt and to lower the risk of infection. Your surgeon will stop the flow of blood to the wound. Using a surgical tool called a dermatome, the surgeon will cut the epidermis and a small layer of dermis from the donor site. This piece will be slightly larger than the wound. The donated tissue will be placed over the wound. It will be held in place with a pressure wrap, stitches (sutures), or both. The site of the donated tissue will be covered with clean bandages ( dressings) to protect against infection. The procedure may vary among health care providers and hospitals. For a full-thickness graft or a composite graft: An IV tube will be inserted into one of your veins. You will be given a medicine that makes you fall asleep (general anesthetic). Your wound will be cleaned to make sure it is free of dirt and to lower the risk of infection. Your surgeon will stop the flow of blood to the wound. Using a scalpel, the surgeon will cut out a section of skin, muscle, fat , and blood supply. This graft will be trimmed and then placed over the wound. The donated tissue will be held in place with absorbable stitches ( sutures). A pressure wrap may also be used. A split-thickness graft might be done to cover the donor site. The procedure may vary among health care providers and hospitals. AFTER THE PROCEDURE You will be moved to a recovery area. Your blood pressure, heart rate, breathing rate, and blood oxygen level will be monitored often until the medicines you were given have worn off. You may be given antibiotic medicines. This information is not intended to replace advice given to you by your health care provider. Make sure you discuss any questions you have with your health care provider. Document Released: 11/25/2005 Document Revised: 04/18/2015 Document Reviewed: [employer] Patient Education 2016 [employer] No follow up information was provided. Referrals to Other Providers Referred by: Anthony Martinez MD
--- OUTSIDE RECORDS SUMMARY | 2016-09-01 17:18 | XMS REPORT | Referral Summary ---
Author Author [facility] Organization [facility] Address Unknown Phone Unavailable Care Team Providers Care Duralumin Metalworker Name Role Phone Loyda Dumont Primary Care Physician [phone] Encounter [facility] Date(s): 04/21/16 - 04/21/16 [facility] [address] [place], [place] [address] Discharge Disposition: 01-Home or Self Care Attending Physician: Karen Sanchez DO Admitting Physician: Karen Sanchez DO Referring Physician: Claus Dumont MD Vital Signs No data available for this section Problem List Condition Effective Dates Status Health Status Informant Laceration of Active nose(Confirmed) Obesity(Confirmed) Active 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
--- OUTSIDE RECORDS SUMMARY | 2016-09-01 17:18 | XMS REPORT | Continuity of Care Document ---
Author Author [facility] Organization [facility] Address Unknown Phone Unavailable Allergies Active Description Code Type Severity Reaction Onset Reported/Identified Relationship to Patient Clinical Status Yes No Known Medication Allergies NKMA N/A N/A 11/12/2013 Yes No Known Allergies NKMA N/A N/A 03/19/2016 Medications Problems Procedures Results Test Result Range Glucose NPT - 05/06/16 16:38 Glucose NPT 101 mg/dL 70-100 Triglycerides - 05/06/16 17:19 Triglycerides 164 mg/dL 0-150 CBC With Platelet No Differential - 05/07/16 03:49 HCT 33.8 % 42.0-52.0 HGB 11.1 g/dL 14.0-18.0 MCH 29.8 pg 27.0-32.0 MCHC 32.8 g/dL 32.0-36.0 MCV 90.9 fL 82.0-99.0 MPV 10.1 fL 9.4-12.3 Platelet Count 224 K/uL 150-400 RBC 3.72 10*6/uL 4.60-6.20 RDW 12.6 % 11.5-14.5 WBC 12.4 K/uL 4.8-10.8 Renal Function Panel - 05/07/16 03:49 Albumin 2.3 g/dL 3.5-4.8 Anion Gap 5 NA 3-20 BUN 7 mg/dL 4-20 Calcium 7.1 mg/dL 8.6-10.0 Chloride 102 mEq/L 99-109 CO2 27 mEq/L 22-32 Creatinine 0.94 mg/dL 0.64-1.27 Glucose 111 mg/dL 70-100 Phosphorus 3.2 mg/dL 2.4-4.7 Potassium 3.5 mEq/L 3.6-5.1 Sodium 134 mEq/L 136-144 eGFR - 05/07/16 03:49 eGFR >60 NA >60 Blood Gases, Arterial (RT) - 05/07/16 05:21 Arterial Base Excess 0 NA 0-2 Arterial Bicarbonate 24 mEq/L 22-26 Arterial O2 Saturation 98.3 % 90.0-97.0 Arterial PCO2 37 mmHg 35-45 Arterial PH 7.43 NA 7.35-7.45 Arterial PO2 108 mmHg 80-100 PEEP 5.0 cmH2O Set Rate 14 br/min Vent Mode ac/vc+ O2 Panel 45%FIO2 0.9IT Spec Site a-line Set Vt 500 mL CBC With Platelet No Differential - 05/08/16 04:25 HCT 27.0 % 42.0-52.0 HGB 9.1 g/dL 14.0-18.0 MCH 30.7 pg 27.0-32.0 MCHC 33.7 g/dL 32.0-36.0 MCV 91.2 fL 82.0-99.0 MPV 10.2 fL 9.4-12.3 Platelet Count 215 K/uL 150-400 RBC 2.96 10*6/uL 4.60-6.20 RDW 12.7 % 11.5-14.5 WBC 9.9 K/uL 4.8-10.8 Renal Function Panel - 05/08/16 04:25 Albumin 2.2 g/dL 3.5-4.8 Anion Gap 4 NA 3-20 BUN 6 mg/dL 4-20 Calcium 7.3 mg/dL 8.6-10.0 Chloride 105 mEq/L 99-109 CO2 24 mEq/L 22-32 Creatinine 0.85 mg/dL 0.64-1.27 Glucose 133 mg/dL 70-100 Phosphorus 1.8 mg/dL 2.4-4.7 Potassium 3.5 mEq/L 3.6-5.1 Sodium 133 mEq/L 136-144 Magnesium - 05/08/16 04:25 Magnesium 1.7 mg/dL 1.8-2.5 eGFR - 05/08/16 04:25 eGFR >60 NA >60 Calcium Ionized - 05/08/16 04:25 Calcium Ionized 1.10 mmol/L 1.19-1.41 Blood Gases, Arterial (RT) - 05/08/16 04:50 Arterial Base Excess 1 NA 0-2 Arterial Bicarbonate 25 mEq/L 22-26 Arterial O2 Saturation 96.4 % 90.0-97.0 Arterial PCO2 38 mmHg 35-45 Arterial PH 7.44 NA 7.35-7.45 Arterial PO2 81 mmHg 80-100 PEEP 5.0 cmH2O Set Rate 14 br/min Vent Mode vc+ O2 Panel 30% IT0.9 Spec Site aaron Set Vt 500 mL CBC With Platelet No Differential - 05/09/16 03:45 HCT 28.2 % 42.0-52.0 HGB 9.3 g/dL 14.0-18.0 MCH 30.1 pg 27.0-32.0 MCHC 33.0 g/dL 32.0-36.0 MCV 91.3 fL 82.0-99.0 MPV 9.9 fL 9.4-12.3 Platelet Count 249 K/uL 150-400 RBC 3.09 10*6/uL 4.60-6.20 RDW 12.5 % 11.5-14.5 WBC 9.6 K/uL 4.8-10.8 Magnesium - 05/09/16 03:45 Magnesium 1.9 mg/dL 1.8-2.5 Renal Function Panel - 05/09/16 03:45 Albumin 2.1 g/dL 3.5-4.8 Anion Gap 3 NA 3-20 BUN 4 mg/dL 4-20 Calcium 7.6 mg/dL 8.6-10.0 Chloride 105 mEq/L 99-109 CO2 28 mEq/L 22-32 Creatinine 0.73 mg/dL 0.64-1.27 Glucose 134 mg/dL 70-100 Phosphorus 2.7 mg/dL 2.4-4.7 Potassium 3.8 mEq/L 3.6-5.1 Sodium 136 mEq/L 136-144 eGFR - 05/09/16 03:45 eGFR >60 NA >60 Calcium Ionized - 05/09/16 03:45 Calcium Ionized 1.15 mmol/L 1.19-1.41 Blood Gases, Arterial (RT) - 05/09/16 05:17 Arterial Base Excess 2 NA 0-2 Arterial Bicarbonate 29 mEq/L 22-26 Arterial O2 Saturation 95.3 % 90.0-97.0 Arterial PCO2 59 mmHg 35-45 Arterial PH 7.32 NA 7.35-7.45 Arterial PO2 85 mmHg 80-100 PEEP 5.0 cmH2O Set Rate 10 br/min Vent Mode ac/vc+ O2 Panel it0.9 30% Spec Site arterial line Set Vt 500 mL CBC With Platelet No Differential - 05/10/16 03:39 HCT 29.1 % 42.0-52.0 HGB 9.3 g/dL 14.0-18.0 MCH 29.5 pg 27.0-32.0 MCHC 32.0 g/dL 32.0-36.0 MCV 92.4 fL 82.0-99.0 MPV 10.0 fL 9.4-12.3 Platelet Count 326 K/uL 150-400 RBC 3.15 10*6/uL 4.60-6.20 RDW 12.5 % 11.5-14.5 WBC 8.1 K/uL 4.8-10.8 Calcium Ionized - 05/10/16 03:39 Calcium Ionized 1.17 mmol/L 1.19-1.41 Triglycerides - 05/10/16 03:40 Triglycerides 111 mg/dL 0-150 Renal Function Panel - 05/10/16 03:40 Albumin 2.1 g/dL 3.5-4.8 Anion Gap 5 NA 3-20 BUN 6 mg/dL 4-20 Calcium 7.7 mg/dL 8.6-10.0 Chloride 101 mEq/L 99-109 CO2 29 mEq/L 22-32 Creatinine 0.83 mg/dL 0.64-1.27 Glucose 133 mg/dL 70-100 Phosphorus 3.0 mg/dL 2.4-4.7 Potassium 3.6 mEq/L 3.6-5.1 Sodium 135 mEq/L 136-144 Magnesium - 05/10/16 03:40 Magnesium 1.9 mg/dL 1.8-2.5 eGFR - 05/10/16 03:40 eGFR >60 NA >60 Blood Gases, Arterial (RT) - 05/10/16 05:32 Arterial Base Excess 4 NA 0-2 Arterial Bicarbonate 29 mEq/L 22-26 Arterial O2 Saturation 99.1 % 90.0-97.0 Arterial PCO2 50 mmHg 35-45 Arterial PH 7.39 NA 7.35-7.45 Arterial PO2 141 mmHg 80-100 O2 Panel tpiece 35% Spec Site SEE BELOW CBC With Platelet No Differential - 05/11/16 03:45 HCT 28.6 % 42.0-52.0 HGB 9.4 g/dL 14.0-18.0 MCH 30.5 pg 27.0-32.0 MCHC 32.9 g/dL 32.0-36.0 MCV 92.9 fL 82.0-99.0 MPV 9.4 fL 9.4-12.3 Platelet Count 366 K/uL 150-400 RBC 3.08 10*6/uL 4.60-6.20 RDW 12.6 % 11.5-14.5 WBC 7.0 K/uL 4.8-10.8 Renal Function Panel - 05/11/16 03:45 Albumin 2.0 g/dL 3.5-4.8 Anion Gap 7 NA 3-20 BUN 7 mg/dL 4-20 Calcium 7.9 mg/dL 8.6-10.0 Chloride 101 mEq/L 99-109 CO2 29 mEq/L 22-32 Creatinine 0.67 mg/dL 0.64-1.27 Glucose 129 mg/dL 70-100 Phosphorus 3.6 mg/dL 2.4-4.7 Potassium 4.0 mEq/L 3.6-5.1 Sodium 137 mEq/L 136-144 Magnesium - 05/11/16 03:45 Magnesium 1.8 mg/dL 1.8-2.5 eGFR - 05/11/16 03:45 eGFR >60 NA >60 Calcium Ionized - 05/11/16 03:45 Calcium Ionized 1.20 mmol/L 1.19-1.41 CBC With Platelet No Differential - 05/12/16 03:19 HCT 30.2 % 42.0-52.0 HGB 9.9 g/dL 14.0-18.0 MCH 30.5 pg 27.0-32.0 MCHC 32.8 g/dL 32.0-36.0 MCV 92.9 fL 82.0-99.0 MPV 9.7 fL 9.4-12.3 Platelet Count 398 K/uL 150-400 RBC 3.25 10*6/uL 4.60-6.20 RDW 12.4 % 11.5-14.5 WBC 8.3 K/uL 4.8-10.8 Calcium Ionized - 05/12/16 03:19 Calcium Ionized 1.21 mmol/L 1.19-1.41 Renal Function Panel - 05/12/16 03:19 Albumin 2.2 g/dL 3.5-4.8 Anion Gap 9 NA 3-20 BUN 7 mg/dL 4-20 Calcium 8.3 mg/dL 8.6-10.0 Chloride 97 mEq/L 99-109 CO2 30 mEq/L 22-32 Creatinine 0.85 mg/dL 0.64-1.27 Glucose 122 mg/dL 70-100 Phosphorus 4.3 mg/dL 2.4-4.7 Potassium 4.2 mEq/L 3.6-5.1 Sodium 136 mEq/L 136-144 Magnesium - 05/12/16 03:19 Magnesium 2.0 mg/dL 1.8-2.5 eGFR - 05/12/16 03:19 eGFR >60 NA >60 CBC With Platelet No Differential - 05/13/16 03:30 HCT 31.5 % 42.0-52.0 HGB 10.5 g/dL 14.0-18.0 MCH 30.5 pg 27.0-32.0 MCHC 33.3 g/dL 32.0-36.0 MCV 91.6 fL 82.0-99.0 MPV 9.5 fL 9.4-12.3 Platelet Count 526 K/uL 150-400 RBC 3.44 10*6/uL 4.60-6.20 RDW 12.5 % 11.5-14.5 WBC 10.0 K/uL 4.8-10.8 Renal Function Panel - 05/13/16 03:30 Albumin 2.2 g/dL 3.5-4.8 Anion Gap 9 NA 3-20 BUN 7 mg/dL 4-20 Calcium 8.5 mg/dL 8.6-10.0 Chloride 101 mEq/L 99-109 CO2 27 mEq/L 22-32 Creatinine 0.72 mg/dL 0.64-1.27 Glucose 143 mg/dL 70-100 Phosphorus 3.6 mg/dL 2.4-4.7 Potassium 4.0 mEq/L 3.6-5.1 Sodium 137 mEq/L 136-144 Magnesium - 05/13/16 03:30 Magnesium 2.0 mg/dL 1.8-2.5 eGFR - 05/13/16 03:30 eGFR >60 NA >60 Calcium Ionized - 05/13/16 03:30 Calcium Ionized 1.22 mmol/L 1.19-1.41 CBC With Platelet No Differential - 05/14/16 03:05 HCT 32.1 % 42.0-52.0 HGB 10.7 g/dL 14.0-18.0 MCH 30.3 pg 27.0-32.0 MCHC 33.3 g/dL 32.0-36.0 MCV 90.9 fL 82.0-99.0 MPV 9.3 fL 9.4-12.3 Platelet Count 589 K/uL 150-400 RBC 3.53 10*6/uL 4.60-6.20 RDW 12.4 % 11.5-14.5 WBC 10.0 K/uL 4.8-10.8 Renal Function Panel - 05/14/16 03:05 Albumin 2.4 g/dL 3.5-4.8 Anion Gap 9 NA 3-20 BUN 12 mg/dL 4-20 Calcium 8.6 mg/dL 8.6-10.0 Chloride 98 mEq/L 99-109 CO2 29 mEq/L 22-32 Creatinine 0.89 mg/dL 0.64-1.27 Glucose 120 mg/dL 70-100 Phosphorus 4.4 mg/dL 2.4-4.7 Potassium 4.3 mEq/L 3.6-5.1 Sodium 136 mEq/L 136-144 Magnesium - 05/14/16 03:05 Magnesium 1.9 mg/dL 1.8-2.5 eGFR - 05/14/16 03:05 eGFR >60 NA >60 Calcium Ionized - 05/14/16 03:06 Calcium Ionized 1.26 mmol/L 1.19-1.41 Urinalysis with reflex microscopic - 05/17/16 13:30 Appearance Clear NA Bilirubin Negative NA Negative Blood Negative NA Negative Color Yellow NA Glucose, Urine Negative Negative Ketones Negative Negative Leukocyte Esterase Negative NA Negative Nitrites Negative NA Negative pH 6.0 NA 5.0-8.0 Protein Negative NA Negative Specific [place] 1.025 NA 1.003-1.030 UA Collection type Clean Catch NA Urobilinogen Negative mg/dL <1.0 CBC With Platelet and Differential - 06/07/16 05:56 Absolute Basophils 0.05 10*3/uL 0.00- 0.20 Absolute Eosinophils 0.30 10*3/uL 0.00- 0.50 Absolute Lymphocytes 1.62 10*3/uL 0.80- 3.30 Absolute Monocytes 0.43 10*3/uL 0.30- 1.00 Absolute Neutrophils 3.24 10*3/uL 1.90- 7.00 Basophils 1 % 0-2 Eosinophils 5 % 0-4 HCT 34.8 % 42.0-52.0 HGB 11.2 g/dL 14.0-18.0 Immature Granulocytes 0.2 % 0.0-1.0 Lymphocytes 29 % 20-46 MCH 28.4 pg 27.0-32.0 MCHC 32.2 g/dL 32.0-36.0 MCV 88.1 fL 82.0-99.0 Monocytes 8 % 4-11 MPV 9.4 fL 9.4-12.3 Neutrophils 57 % 51-75 Nucleated RBC Automated 0.0 /100 WBC Platelet Count 315 K/uL 150-400 RBC 3.95 10*6/uL 4.60-6.20 RDW 12.8 % 11.5-14.5 WBC 5.6 K/uL 4.8-10.8 Basic Metabolic Panel (BMP) - 06/07/16 05:56 Anion Gap 5 NA 3-20 BUN 8 mg/dL 4-20 Calcium 8.5 mg/dL 8.6-10.0 Chloride 106 mEq/L 99-109 CO2 27 mEq/L 22-32 Creatinine 0.96 mg/dL 0.64-1.27 Glucose 95 mg/dL 70-100 Potassium 3.7 mEq/L 3.6-5.1 Sodium 138 mEq/L 136-144 eGFR - 06/07/16 05:56 eGFR >60 NA >60 Encounters ACCT No. Visit Date/Time Discharge Status Pt. Type Provider Facility Loc./Unit Complaint [id number] 08/30/2016 15:38:00 2016 23:59:00 DIS Outpatient Kendy Bhat [facility] ENT RCK THROAT [id number] 08/25/2016 09:09:00 2016 23:59:00 DIS Outpatient Anthony Martinez [facility] W Plstc 1 wk elizabeth [id number] 08/19/2016 09:41:00 2016 23:59:00 DIS Outpatient Anthony Martinez [facility] PlstcSg 6 DAYS PO [id number] 08/09/2016 08:42:00 2016 23:59:00 DIS Outpatient Anthony Martinez [facility] 1 WK RCK [id number] 08/02/2016 11:32:00 2016 23:59:00 DIS Outpatient Desplinter, Anthony A [facility]g POST OP VISIT [id number] 07/28/2016 13:17:00 2016 23:59:00 DIS Outpatient Anthony Martinez [facility] W ST Plstc 6 day po [id number] 07/20/2016 12:49:00 2016 23:59:00 DIS Outpatient Vinny Jeter [facility] New FM CONSTIPATED HS SURGERY THIS TUESDAY DR STEPHENSON FULL TODAY [id number] 07/05/2016 09:23:00 2016 23:59:00 DIS Outpatient Anthony Martinez [facility]cSg discuss surgery [id number] 06/22/2016 12:42:00 2016 23:59:00 DIS Outpatient Karen Sanchez [facility] ENT RCK LF NECK DISSECTION TRACH [id number] 06/16/2016 14:38:00 2016 23:59:00 DIS Outpatient Anthony Martinez [facility] W ST Plstc POST OP VISIT [id number] 06/10/2016 13:37:00 2016 23:59:00 DIS Outpatient Claus Dumont V [facility] New FM Post Surgery Follow up [id number] 06/01/2016 13:36:00 2016 23:59:00 DIS Outpatient Dariel Guerrier [facility] Mur Gasto FEEDING TUBE REMOVAL [id number] 05/31/2016 10:41:00 2016 23:59:00 DIS Outpatient Anthony Martinez [facility]g 1 wk elizabeth [id number] 05/27/2016 09:06:00 2016 23:59:00 DIS Outpatient Karen Sanchez [facility] ENT PO LF NECK DISSECTION TRACH [id number] 05/24/2016 09:36:00 2016 23:59:00 DIS Outpatient Anthony Martinez [facility] RCK [id number] 05/18/2016 13:08:00 2016 23:59:00 DIS Outpatient Suad Morelos [facility] FC ENT PO 2 WK LF NECK DISSECTION TRACH [id number] 05/03/2016 08:08:00 2016 23:59:00 DIS Outpatient Dariel Guerrier [facility] Mur Gasto PEG Tube [id number] 04/21/2016 10:42:00 2016 23:59:00 DIS Outpatient Karen Sanchez [facility] ENT RCK DISCUSS SCAN RESULTS [id number] 03/31/2016 10:08:00 2015 23:59:00 DIS Outpatient Anthony Martinez [facility] W ST Plstc SCC OF MANDIBLE [id number] 03/29/2016 13:17:00 2015 23:59:00 DIS Outpatient Karen Sanchez [facility] ENT DISCUSS CT [id number] 03/19/2016 08:46:00 2015 23:59:00 DIS Outpatient Karen Sanchez [facility] ENT LESION INSIDE MOUTH [id number] 03/15/2016 15:15:00 2015 23:59:00 DIS Outpatient Claus Dumont V [facility] New FM TCPA SORE ON LIP X1 MO [id number] 11/05/2015 09:53:00 2015 23:59:00 DIS Outpatient Claus Dumont V [facility] New FM IC follow up knee recheck [id number] 10/29/2015 13:16:00 2015 23:59:00 DIS Outpatient River Schneider [facility] New IC ACC KNEE INJURY [id number] 09/01/2016 09:35:00 ACT Outpatient Anthony Martinez [facility] W ST Plst[facility] 1 WEEK RCK [id number] 06/07/2016 05:00:00 Document Registration [id number] 05/06/2016 05:14:00 Document Registration
--- NOTE | 2016-09-01 17:19 | NUR ---
PROVIDER DR PARIS IN ROOM W/ PT.
[2016-09-01] MEDS ORDERED: HYDR4TAB84 PO (17:41)
[2016-09-01] MEDS ORDERED: NALO25TA PO (17:41)
[2016-09-01] MEDS ORDERED: DOCU100C19 PO (17:41)
--- OUTSIDE RECORDS SUMMARY | 2016-09-01 17:49 | XMS REPORT | Continuity of Care Document ---
Author Author [facility] Organization [facility] Address Unknown Phone Unavailable Support Name Relationship Address Phone NOHEMI LIPSCOMB Caregiver [facility] [address] [place] [address] LIGIA PINEDO MD Caregiver [address] [place] [address] ROSALINA SULLIVAN Next Of Kin [address] [address] Insurance Providers Payer Name Policy Number Subscriber [...] Has specimen been collected/obtained? Y Urine Specific Dawson April 23, 2009 3:55pm 1.015 - Has [...] Report February 15, 2011 11:01am REFERENCE LAB [id number] - EKG April 23, 2009 3:38pm Complete - Glomerular Filtration Rate Calc March 19, 2010 11:26pm 92 - Procedures No known history of procedures. Encounters Encounter Location Date/Time Departed Emergency Room [facility] 11/12/13 3:36pm Recent Diagnosis
--- OUTSIDE RECORDS SUMMARY | 2016-09-01 17:51 | XMS REPORT | Continuity of Care Document ---
Author Author [facility] Organization [facility] Address Unknown Phone Unavailable Allergies Active Description [...] NA 5.0-8.0 Protein Negative NA Negative Specific Anderson 1.025 NA 1.003-1.030 UA Collection type Clean [...] Status Pt. Type Provider Facility Loc./Unit Complaint [id number] 08/30/2016 15:38:00 2016 23:59:00 DIS Outpatient Kendy Bhat [facility] ENT RCK THROAT [id number] 08/25/2016 09:09:00 2016 23:59:00 DIS Outpatient Anthony Martinez [facility] W [facility] 1 wk elizabeth [id number] 08/19/2016 09:41:00 2016 23:59:00 DIS Outpatient Anthony Martinez [facility] 6 DAYS PO [id number] 08/09/2016 08:42:00 2016 23:59:00 DIS Outpatient Anthony Martinez [facility] 1 WK RCK [id number] 08/02/2016 11:32:00 2016 23:59:00 DIS Outpatient Desplinter, Anthony A [facility] POST OP VISIT [id number] 07/28/2016 13:17:00 2016 23:59:00 DIS Outpatient Anthony Martinez [facility] W ST Plstc 6 day po [id number] 07/20/2016 12:49:00 2016 23:59:00 DIS Outpatient Vinny Jeter [facility] New FM CONSTIPATED HS SURGERY THIS TUESDAY DR STEPHENSON FULL TODAY [id number] 07/05/2016 09:23:00 2016 23:59:00 DIS Outpatient Anthony Martinez [facility] discuss surgery [id number] 06/22/2016 12:42:00 2016 23:59:00 DIS Outpatient Karen Sanchez [facility] ENT RCK LF NECK DISSECTION TRACH [id number] 06/16/2016 14:38:00 2016 23:59:00 DIS Outpatient Anthony Martinez [facility] W ST Plstc POST OP VISIT [id number] 06/10/2016 13:37:00 2016 23:59:00 DIS Outpatient Claus Dumont V [facility] New FM Post Surgery Follow up [id number] 06/01/2016 13:36:00 2016 23:59:00 DIS Outpatient Dariel Guerrier [facility] Mur [place]asto FEEDING TUBE REMOVAL [id number] 05/31/2016 10:41:00 2016 23:59:00 DIS Outpatient Anthony Martinez [facility] 1 wk elizabeth [id number] 05/27/2016 09:06:00 2016 23:59:00 DIS Outpatient Karen Sanchez [facility] ENT PO LF NECK DISSECTION TRACH [id number] 05/24/2016 09:36:00 2016 23:59:00 DIS Outpatient Anthony Martinez [facility] RCK [id number] 05/18/2016 13:08:00 2016 23:59:00 DIS Outpatient Suad Morelos [facility] FC ENT PO 2 WK LF NECK DISSECTION TRACH [id number] 05/03/2016 08:08:00 2016 23:59:00 DIS Outpatient Dariel Guerrier [facility] [place] PEG Tube [id number] 04/21/2016 10:42:00 2016 23:59:00 DIS Outpatient Karen Sanchez [facility] ENT RCK DISCUSS SCAN RESULTS [id number] 03/31/2016 10:08:00 2015 23:59:00 DIS Outpatient Anthony Martinez [facility] W ST Plstc SCC OF MANDIBLE [id number] 03/29/2016 13:17:00 2015 23:59:00 DIS Outpatient Karen Sanchez [facility] ENT DISCUSS CT [id number] 03/19/2016 08:46:00 2015 23:59:00 DIS Outpatient Karen Sanchez [facility] ENT LESION INSIDE MOUTH [id number] 03/15/2016 15:15:00 2015 23:59:00 DIS Outpatient Claus Dumont V [facility] New FM TCPA SORE ON LIP X1 MO [id number] 11/05/2015 09:53:00 2015 23:59:00 DIS Outpatient Claus Dumont V [facility] New FM IC follow up knee recheck [id number] 10/29/2015 13:16:00 2015 23:59:00 DIS Outpatient River Schneider [facility] New IC ACC KNEE INJURY [id number] 09/01/2016 09:35:00 ACT Outpatient Anthony Martinez [facility] W ST Pl[facility] 1 WEEK RCK [id number] 06/07/2016 05:00:00 Document Registration [id number] 05/06/2016 05:14:00 Document Registration
[2016-09-01] MEDS: NORMAL SALINE 1,000 ML IV ONE (17:54)
[2016-09-01 17:55] LABS: BASOPHILS # (AUTO) 0.1 T/MM3 (0-0.2); BASOPHILS % (AUTO) 0.4 % (0-2); EOSINOPHILS # (AUTO) 0.2 T/MM3 (0-0.5); EOSINOPHILS % (AUTO) 1.4 % (0-4); HCT - HEMATOCRIT 47.4 % (41-53); HGB - HEMOGLOBIN 15.8 GM/DL (13.5-17.5); IMMATURE GRANULOCYTE # (AUTO) 0.02 T/MM3 (0.00-0.03); IMMATURE GRANULOCYTE % (AUTO) 0.2 % (0.0-0.5); LYMPHOCYTES % (AUTO) 25.5 % (23-45); MEAN CORPUSCULAR HGB 27.3 UUG (26-34); MEAN CORPUSCULAR HGB CONC(MCHC 33.3 GM/DL (31-37); MEAN CORPUSCULAR VOLUME 81.9 UM3 (80-100); MONOCYTES # (AUTO) 0.6 T/MM3 (0-0.8); MONOCYTES % (AUTO) 5.1 % (0-9.0); NEUTROPHILS % (AUTO) 67.4 % (33-66); RED BLOOD COUNT 5.79 M/MM3 (4.50-5.90); WBC - WHITE BLOOD COUNT 11.8 T/MM3 (4.5-11.0)
--- NOTE | 2016-09-01 17:56 | NUR ---
XRAY PT GONE TO XRAY VIA CART.
[2016-09-01 18:03] LABS: ANION GAP 17 MEQ/L (5-15); BUN/CREATININE RATIO 14 RATIO (6-26); CHLORIDE 105 MEQ/L (98-107); CO2 - CARBON DIOXIDE 23 MEQ/L (22-30); CREATININE 0.8 MG/DL (0.8-1.5); GLOMERULAR FILTRATION RATE 102; GLUCOSE 105 MG/DL (75-110); POTASSIUM 4.1 MEQ/L (3.6-5); SODIUM 145 MEQ/L (134-144)
--- NOTE | 2016-09-01 18:04 | NUR ---
XRAY PT BACK FROM XRAY VIA CART.
--- NOTE | 2016-09-01 18:17 | ERPDOC ---
Departure Disposition Decision Date: September 01, 2016 Disposition Decision Time: 21:01 (RACQUEL GREEN MD) Disposition: 01 DISCHARGED HOME, SELF-CARE Impression Impression () Impression: Primary Impression: Constipation Severity: Moderate (RACQUEL GREEN MD) Condition: Stable Seen By: Physician only (RACQUEL GREEN MD) Referrals: LIGIA PINEDO MD (PCP) Patient Instructions: Constipation (ED) Problems/Meds/Labs Reviewed?: Yes Medications reviewed and manag: Yes (RACQUEL GREEN MD) Additional Instructions: MiraLAX 17 g dose twice daily until normal stool, then once daily. Follow-up as needed. Mental Status: Alert, Oriented () Follow up care ordered?: Yes Mental Status: Alert, Oriented (RACQUEL GREEN MD) Scripts Polyethylene Glycol 3350 (Miralax) 17 Gm Powd.pack 17 G PO DAILY, #1 BOTTLE Take 17 Grams (1 capful), by mouth, once a day. Prov: RACQUEL GREEN MD 09/01/16 HPI - Abdominal Pain General Chief Complaint: General Stated Complaint: CONSTIPATION/PAIN Time Seen by Provider: 17:19 Source: patient History/Exam Limitations: no limitations () Time Seen by Provider: 18:50 (RACQUEL GREEN MD) HPI - Abdominal Pain Initial Comments 51yo man presents for treatment of constipation. Pt has chronic constipation since having facial surgery and reconstruction for surgery. Pt is no longer taking narcotics, but is on several meds for a bowel regimen. He has not been able to have a BM; is having significant pain. Requests help with constipation. Occurred At: home Onset: Gradual, Getting worse Duration: other Pain Scale: Now & Worst: 10/10 Quality: cramping Location: generalized abdomen Activities at Onset: none Modifying Factors: IMPROVES WITH: analgesics, rest, WORSE WITH: movement, palpation Associated Symptoms: nausea/vomiting Hx of Similar Symptoms: Yes () Allergies: Coded Allergies: No Known Allergies (Verified , 06/07/16) Past History Patient Medical History (1) Cancer of mandible () Patient Surgical History Mandibular repair with fibula graft () Past Medical History Metabolic: cancer GI: constipation () Surgical History General: gallbladder () Vaccines Hx Influenza Vaccination: No Hx Pneumococcal Vaccination: No () Social History Does patient use chewing tobac: No Second Hand Exposure: No Alcohol Intake: none () Review of Systems GI Upper Abdomen: nausea, pain Lower Abdomen: constipation, pain () Physical Exam General General Nourishment: well nourished, well developed, appears stated age, no acute distress, adult, obese General Body Habitus: well groomed () Vitals and Pain First Documented Vital Signs Date Time Temp Pulse Resp B/P Pulse Ox O2 Delivery O2 Flow Rate FiO2 09/01/16 17:15 96.7 83 20 139/93 100 Room Air (RACQUEL GREEN MD) Vitals and Pain Weight: Kilograms: 92.300 Height (feet): 5 Height (inches): 8.00 Triage Pain Scale: () RN VS reviewed by Provider: Yes () Normal Exams: Head: Normocephalic w/o trauma Eyes: Pupils are PERRLA w/ EOMI, No scleral icterus, irritation ENMT: No facial trauma, nasal exudates, pharyngeal erythema Neck: Full range of motion, without adenopathy, JVD Lymphatic: No lymphadenopathy Musculoskeletal: No tenderness, or deformity noted Integumentary: No rashes, hives, or bruising noted Neurologic: Patient is alert, and oriented Psychiatric: Patient exhibits, appropriate attention () Respiratory (brief) Respiratory: FOUND: clear all barrett, equal bilaterally, symmetrical, NOT FOUND : rales, wheezes () Cardiovascular (brief) Cardiac: FOUND: regular rate, regular rhythm, NOT FOUND: click, gallop, murmur , pedal edema, peripheral edema, rub Capillary Refill: <2 sec Pulses: all distal extremities, equal, strong () Abdomen (brief) Abdominal Brief: FOUND: bowel normo active x4, distended, soft, tender ( Diffusely TTP), NOT FOUND: hepatosplenomegaly, pulsatile mass () Differential Diagnoses Considering: Bowel Obstruction, Constipation, Hernia, Ileus () Progress Results/Orders Orders Procedure Category Date Status Time Iv Lock (Ed Only) EDM 09/01/16 Transmitted 17:35 Nothing By Mouth (Ed EDM 09/01/16 Transmitted Only) 17:35 Cbc W/Auto LAB 09/01/16 Complete Diff-Reflex Manual 17:35 Bmp - Basic Metabolic LAB 09/01/16 Complete Panel 17:35 Kub W/Upright RAD 09/01/16 Taken 17:35 Normal Saline (Normal PHA 09/01/16 Complete Saline Iv) 17:35 Ketorolac (Toradol) PHA 09/01/16 Complete 18:00 Ondansetron Inj PHA 09/01/16 Complete (Zofran) 18:00 Peg 3350 (Miralax) PHA 09/01/16 Complete 18:00 Mineral Oil (Fleet PHA 09/01/16 Complete Mineral Oil Enema) 18:00 Morphine Sulfate PHA 09/01/16 Complete (Morphine) 20:45 (RACQUEL GREEN MD) Lab Results Laboratory Tests Test 09/01/16 17:50 White Blood Count 11.8T/MM3 Red Blood Count 5.79M/MM3 Hemoglobin 15.8GM/DL Hematocrit 47.4% Mean Corpuscular Volume 81.9UM3 Mean Corpuscular Hemoglobin 27.3UUG Mean Corpuscular Hemoglobin Concent 33.3GM/DL RDW Standard Deviation 42.4FL Platelet Count 330T/MM3 Mean Platelet Volume 10.0UM3 Immature Granulocyte % (Auto) 0.2% Neutrophils (%) (Auto) 67.4% Lymphocytes (%) (Auto) 25.5% Monocytes (%) (Auto) 5.1% Eosinophils (%) (Auto) 1.4% Basophils (%) (Auto) 0.4% Absolute Immature Granulocyte (auto 0.02T/MM3 Absolute Neutrophils (auto) 8.0T/MM3 Absolute Lymphocytes (auto) 3.0T/MM3 Absolute Monocytes (auto) 0.6T/MM3 Absolute Eosinophils (auto) 0.2T/MM3 Absolute Basophils (auto) 0.1T/MM3 Turbidity < 20 Sodium Level 145MEQ/L Potassium Level 4.1MEQ/L Chloride Level 105MEQ/L Carbon Dioxide Level 23MEQ/L Anion Gap 17MEQ/L Blood Urea Nitrogen 11.0MG/DL Creatinine 0.8MG/DL Glomerular Filtration Rate Calc 102 BUN/Creatinine Ratio 14RATIO Glucose Level 105MG/DL Calculated Osmolality 278MOSM/KG Calcium Level 10.0MG/DL Icterus Index < 2 Chemistry Specimen Hemolysis < 15 (RACQUEL GREEN MD) Medications Current ED Medications Sodium Chloride (Normal Saline IV) 1,000 ml @ 0 mls/hr Q0M ONCE IV Last administered on 09/01/16 17:54; Start 09/01/16 at 17:35; Stop 09/01/16 at 17:36 ; Status DC Ketorolac Tromethamine (Toradol) 30 mg O ONCE IV Last administered on 19:01; Start 09/01/16 at 18:00; Stop 09/01/16 at 18:01; Status DC Ondansetron HCl (Zofran) 4 mg O ONCE IV Last administered on 09/01/16 18:55; Start 09/01/16 at 18:00; Stop 09/01/16 at 18:01; Status DC Polyethylene Glycol (Miralax) 34 g O ONCE PO Last administered on 09/01/16 19 :09; Start 09/01/16 at 18:00; Stop 09/01/16 at 18:01; Status DC Mineral Oil (Fleet Mineral Oil Enema) 1 enema O ONCE RECTALLY Last administered on 09/01/16 19:10; Start 09/01/16 at 18:00; Stop 09/01/16 at 18:01 ; Status DC Morphine Sulfate (Morphine) 4 mg O ONCE IM ; Start 09/01/16 at 20:45; Stop at 20:47; Status DC (RACQUEL GREEN MD) Progress Progress Patient was given mineral oil enema and double dose of MiraLAX. Toradol 60 mg was given IM. He until need to have pain and had only a small bowel movement. He was given 4 mg of morphine IM and discharged to continue with another dose of MiraLAX when he got home to continue then with twice daily dosing until he has an appropriate bowel movement. Giving the morphine certainly contributes to obstipation, however there is some benefit to allowing him to relax. He is currently on chronic narcotics and another single dose of morphine is not likely to cause problems. He is taking Movantik, did miss a dose earlier this week which is what most likely led to this. Labs and x-ray reviewed with Dr. Paris. (RACQUEL GREEN MD) GISSELLE PARIS DO September 01, 2016 18:17 RACQUEL GREEN MD September 01, 2016 21:02
[2016-09-01] MEDS: ONDANSETRON 4mg/2ml INJECTION IV ONE (18:55)
[2016-09-01] MEDS: KETOROLAC 30mg/ml INJECTION IV ONE (19:01)
[2016-09-01] MEDS: POLYETHYL.GLYCOL 3350 PACKET 17gm PO ONE (19:09)
--- NOTE | 2016-09-01 19:09 | NUR ---
PO MED MIRALAX GIVEN CHARTED X2 PACKETS W/ EACH 4 OZ ORANGE JUICE CHARTED W/ PT TOLERNANCE.
[2016-09-01] MEDS: MINERAL OIL 133 ML ENEMA RECTALLY ONE (19:10)
--- NOTE | 2016-09-01 19:10 | NUR ---
RECTAL MED FLEET GIVEN CHARTED W/ PT TOLERANCE.
[2016-09-01] MEDS: MORPHINE SULFATE 4 MG SYRINGE IM ONE (20:45)
[2016-09-01] MEDS ORDERED: POLY17PO6 PO (21:03)
[2016-09-01] MEDS: MILK OF MAGNESIA 30 ML SUSP PO ONE (21:04)
--- NOTE | 2016-09-01 21:04 | NUR ---
PO TAKE HOME PREPACK X1 MOM TO BE GIVEN FOR CONTSTIPATION IF NEEDED
[2016-09-01 21:15] VITALS: BP 124/68; PULSE 69; RESP 18; TEMP 97.9; O2SAT 94
--- NOTE | 2016-09-01 21:15 | NUR ---
DISCHARGE PT GIVEN INSTRUCTIONS FOR CONSTIPATION W/ RX X1 MIRALAX , PT VERBALIZED UNDERSTANDING AND SIGNED FORM,PT LEFT ER ALERT, AMBULATORY VS CHARTED IN NO ACUTE DISTRESS W/ CONT CONSTIPATION.
--- NOTE | 2016-09-02 07:53 | DI ---
Indication: ITS.REASON: Constipation PROCEDURE: KUB W/UPRIGHT: Encounter: Initial Comparison: None Findings: The visualized lung bases are clear. There is no free air on the upright view. The bowel gas pattern is nonobstructive and nonspecific. Gas is seen in nondilated small and large bowel to the level of the rectum. Large amount of stool is seen throughout the colon. Cholecystectomy clips. Impression: Nonobstructive nonspecific bowel gas pattern. Increased colonic stool burden consistent with constipation. .
== END 2016-09-01 21:15 | disposition home or self-care (01) ==
LOC: ED 17:12
DX: K59.00 Constipation, unspecified (principal)
CPT/HCPCS: 74020; 80048; 85025; 96361; 96374; 96375; 99284; J1885; J2405; J7030